=== PATIENT | male | born 1950 | race Caucasian/White ===

== ENCOUNTER 2020-06-28 18:01 | Inpatient (IN) ==
[2020-06-28] MEDS ORDERED: DEXAMETHASONE SODIUM PHOSP/PF 10 MG/ML VIAL IV ONE (18:26)
[2020-06-28] MEDS ORDERED: ALBUTEROL SULFATE/IPRATROPIUM 3 ML NEBU IH ONE (18:36)
[2020-06-28 18:53] LABS: Hematocrit 49.1 % (42.0-52.0); Mean Cell Volume 86.1 fl (78-100); Mean Corpuscular Hemoglobin 28.1 pg (27-31); Mean Corpuscular Hgb Conc 32.6 g/dl (32-36); Mean Platelet Volume 10.3 fl (8-11.3); Neutrophil # 5.4 K/mm3 (1.3-6.0); Platelet Count 124 K/mm3 (150-450); Red Cell Distribution Width 14.7 % (11.5-14.0); White Blood Count 6.2 K/mm3 (4.0-10.5)
[2020-06-28] MEDS ORDERED: ACETAMINOPHEN 1,000 MG/100 ML BTL IV ONE (19:03)
[2020-06-28 19:10] LABS: Troponin I Less than 0.017 ng/mL (0.00-0.10)
[2020-06-28 19:11] LABS: ALT 53 U/L (19-67); AST 49 U/L (0-48); Alkaline Phosphatase * 74 U/L (50-170); Anion Gap 16.3 mmol/L (6.8-13.8); BNP * 65 pg/mL (5-350); BUN/Creatinine Ratio 22.9 (9.0-21.6); Bilirubin, Total 0.6 mg/dL (0.0-1.1); Blood Urea Nitrogen 30 mg/dL (6-23); Calcium * 8.5 mg/dL (7.9-10.9); Carbon Dioxide 21.8 mmol/L (24-32.6); Chloride 103 mmol/L (97-106); Glucose * 131 mg/dL (70-110); Potassium 4.1 mmol/L (3.4-4.6); Sodium 137 mmol/L (132-142); Total Protein 6.8 gm/dL (6.2-8.2)
--- NOTE | 2020-06-28 19:28 | ERNOTE ---
<JoshuaRoddy barrera - Last Filed: 06/28/20 19:54> Dyspnea - Date Date of Service: 06/28/20 - General Presenting Symptoms: shortness of breath Time Seen by Provider: 06/28/20 18:18 Source: patient Exam Limitations: no limitations - Immun/Allergies/Home Medications Immunizations: IMMUNIZATION HX Immunizations Up to Date Yes History of Influenza Vaccine Yes Hx Pneumococcal Vaccination Yes Allergies/Adverse Reactions: Allergies Penicillins Allergy (Intermediate, Verified 06/28/20 18:27) rash, hives Home Medications: HOME MEDICATIONS Aspirin [Aspirin EC] 162 mg PO DAILY 07/25/15 [Last Taken Unknown] cinnamon bark 500 mg capsule 500 mg PO BID cap 07/12/18 [Last Taken Unknown] coenzyme Q10 10 mg capsule 10 mg PO DAILY cap 07/12/18 [Last Taken Unknown] blood-glucose meter See Dose Instructions .ROUTE .MEDSUPPLY #1 ea 12/16/18 [Last Taken Unknown] acetaminophen 325 mg tablet 325 mg PO Q4H PRN #90 tab 01/26/19 [Last Taken Unknown] albuterol sulfate 90 mcg/actuation aerosol inhaler 2 puff IH .Q4-6H #8 g 04/14/19 [Last Taken Unknown] atenolol 25 mg tablet 25 mg PO DAILY #90 tab 09/28/19 [Last Taken Unknown] enalapril maleate 20 mg tablet 20 mg PO DAILY #90 tab 09/28/19 [Last Taken Unknown] atorvastatin 40 mg tablet 40 mg PO DAILY #10 tab 12/22/19 [Last Taken Unknown] omeprazole 40 mg capsule,delayed release 40 mg PO DAILY #90 cap 06/17/20 [Last Taken Unknown] - History of Present Illness Narrative: Patient returns to the ED for worsening SOB. He was seen yesterday here and had extensive evaluation. Went home and throughout the day became more SOB. Had sats 73% RA on arrival and placed on 15L oxy mask. No acute CP. Has been feeling feverish. Has some chronic LE edema but nothing new. No vomiting. Taking medications as directed. Severity: severe Initiating event: Reports: upper resp illness Frequency of episodes: Reports: no prior episodes Modifying Factors - (Improves): Reports: nothing Modifying Factors (Worsens): Reports: activity Associated Symptoms-Dyspnea: Reports: fever/chills, cough. Denies: chest pain/discomfort, weakness Prior Treatment: Reports: recently seen Review of Systems - Review of Systems Constitutional: Present: fever EYE: Present: no symptoms reported ENT: Present: nose congestion Respiratory: Present: shortness of breath, cough Cardiology: Absent: chest pain Gastrointestinal/Abdominal: Absent: abdominal pain Neurological: Absent: weakness All Other Systems: All systems neg except as marked Medical History (Last Reviewed 06/28/20 @ 19:24 by Roddy Canada MD) Hypertension (Chronic) Onset Date: Unknown Hyperlipidemia (Chronic) Onset Date: Unknown Glucose intolerance (Chronic) Onset Date: Unknown DVT (deep venous thrombosis) Onset Date: Unknown Prostate cancer Onset Date: Unknown Surgical History: Surgical History (Last Reviewed 06/28/20 @ 19:24 by Roddy Canada MD) H/O colonoscopy Onset Date: ~2007 WNL H/O heart bypass surgery Onset Date: ~10/1998 [facility] History of prostate surgery Onset Date: ~05/[address] [facility] [address] Jesus Knapp Family History: Family History (Last Reviewed 06/28/20 @ 19:24 by Roddy Canada MD) Mother , unknown age Myocardial infarction Father , unknown age Myocardial infarction Social History: (Last Reviewed 06/28/20 @ 19:24 by Roddy Canada MD) Social History: adopted: No Marital status: lives independently: Yes household members: none current occupational status: employed current occupation: Administrative Services Assistant Highest education level completed: high school graduate Service: No Tobacco: Smoking Status: Former smoker how long ago did patient quit smokin Alcohol: alcohol intake: current alcohol intake frequency: 3 or more drinks per day details: * family informed staff of alcohol intake, pt states he only drinks on Fri Substance Use: substance use type: does not use Dietary Habits: caffeine: Yes Physical Exam - Physical Exam General Appearance: Present: alert, moderate distress Head Exam: Present: normal inspection, no evidence of injury Eye Exam: Normal inspection: bilateral, PERRL: bilateral Ears, Nose, Throat: Present: normal ENT inspection Neck: Present: normal inspection Respiratory: Present: respiratory distress, other - tachypnea but no active wheezing heard Cardiovascular/Chest: Present: normal peripheral pulses, tachycardia Gastrointestinal/Abdominal: Present: normal bowel sounds, nontender, soft Back Exam: Absent: CVA tenderness (R), CVA tenderness (L) Extremity Exam: Present: other - left LE edema that is postsurgical Neurological Exam: Present: alert, no motor/sensory deficits Skin Exam: Present: normal color, warm/dry Progress - Results and Orders Patient's Lab Results:: I have reviewed the patient's lab results. - Vital Signs Patient's Vital Signs:: I have reviewed the patient's vital signs. Vital Signs: Vital Signs 06/28/20 18:20 06/28/20 18:33 06/28/20 18:41 Temperature 38.9 C H Pulse Rate 86 82 117 H Respiratory Rate 24 H 19 33 H Blood Pressure 127/61 116/60 116/60 O2 Sat by Pulse Oximetry 73 L 94 93 06/28/20 18:42 06/28/20 18:52 06/28/20 18:57 Temperature Pulse Rate 98 88 87 Respiratory Rate 15 19 19 Blood Pressure 104/53 O2 Sat by Pulse Oximetry 94 97 06/28/20 18:58 06/28/20 19:04 06/28/20 19:12 Temperature 38.4 C H Pulse Rate 86 82 105 H Respiratory Rate 31 H 18 12 Blood Pressure 106/51 106/51 106/51 O2 Sat by Pulse Oximetry 95 94 94 - EKG EKG #1 EKG read: Interp. by me EKG Comments: Sinus tachycardia rate 109. Non-specific, no STEMI noted. - X-Ray X-Ray #1 X-Ray: chest Interpretation: Interp. by me X-ray Comments: I personally reviewed x-ray images, c/w Covid. No real time radiology reads at this time. - Progress/Reassessment Chief Complaint: Dyspnea Progress Note-Subjective: 06/28/20 19:26 Patient given oxygen and this was titrated and he felt significantly improved. Titrated 3L with sats 93%. IV Decadron given. He will need admission and he understands this. - Transfer of Care Physician Sign Out: Roddy Canada Receiving Physician: Liz Caldera Pending Results: Labs Expected Disposition: Admit Departure Clinical Impression: Hypoxia, COVID-19, COPD (chronic obstructive pulmonary disease) - Departure Disposition: Short Term Hospital Inpatient Condition: Fair Referrals: Nadine Andrea MD [Primary Care Provider] - <Liz Caldera - Last Filed: 06/28/20 20:41> Dyspnea - Immun/Allergies/Home Medications Immunizations: IMMUNIZATION HX Immunizations Up to Date Yes History of Influenza Vaccine Yes Hx Pneumococcal Vaccination Yes Medical History (Last Reviewed 06/28/20 @ 19:24 by Roddy Canada MD) Hypertension (Chronic) Onset Date: Unknown Hyperlipidemia (Chronic) Onset Date: Unknown Glucose intolerance (Chronic) Onset Date: Unknown DVT (deep venous thrombosis) Onset Date: Unknown Prostate cancer Onset Date: Unknown Surgical History: Surgical History (Last Reviewed 06/28/20 @ 19:24 by Roddy Canada MD) H/O colonoscopy Onset Date: ~2007 WNL H/O heart bypass surgery Onset Date: ~10/1998 [facility] History of prostate surgery Onset Date: ~05/[address] [facility] [address] Jesus Knapp Family History: Family History (Last Reviewed 06/28/20 @ 19:24 by Roddy Canada MD) Mother , unknown age Myocardial infarction Father , unknown age Myocardial infarction Social History: (Last Reviewed 06/28/20 @ 19:24 by Roddy Canada MD) Social History: adopted: No Marital status: lives independently: Yes household members: none current occupational status: employed current occupation: Administrative Services Assistant Highest education level completed: high school graduate Service: No Tobacco: Smoking Status: Former smoker how long ago did patient quit smokin Alcohol: alcohol intake: current alcohol intake frequency: 3 or more drinks per day details: * family informed staff of alcohol intake, pt states he only drinks on Fri Substance Use: substance use type: does not use Dietary Habits: caffeine: Yes Progress - Vital Signs Vital Signs: Vital Signs 06/28/20 18:20 06/28/20 18:33 06/28/20 18:41 Temperature 38.9 C H Pulse Rate 86 82 117 H Respiratory Rate 24 H 19 33 H Blood Pressure 127/61 116/60 116/60 O2 Sat by Pulse Oximetry 73 L 94 93 06/28/20 18:42 06/28/20 18:52 06/28/20 18:57 Temperature Pulse Rate 98 88 87 Respiratory Rate 15 19 19 Blood Pressure 104/53 O2 Sat by Pulse Oximetry 94 97 06/28/20 18:58 06/28/20 19:04 06/28/20 19:12 Temperature 38.4 C H Pulse Rate 86 82 105 H Respiratory Rate 31 H 18 12 Blood Pressure 106/51 106/51 106/51 O2 Sat by Pulse Oximetry 95 94 94 06/28/20 19:26 06/28/20 19:27 06/28/20 19:34 Temperature 38.5 C H Pulse Rate 104 H 104 H Respiratory Rate 22 H 22 H Blood Pressure 101/50 123/48 O2 Sat by Pulse Oximetry 95 94 88 L 06/28/20 19:45 06/28/20 20:08 06/28/20 20:36 Temperature 37 C Pulse Rate 101 H 99 88 Respiratory Rate 22 H 20 18 Blood Pressure 100/44 101/56 98/53 O2 Sat by Pulse Oximetry 98 97 100 Plan - Plan Plan: case dw dr sharma who accepted pt to [facility] bed which is available. requests additional tests procalcitonin, ddimer, esr, crp. will start pt on remdesivir
[2020-06-28] MEDS ORDERED: NORMAL SALINE 1,000 ML IV ONE ×2 (20:17→20:18)
[2020-06-28] MEDS ORDERED: REMDESIVIR (EUA) 200 MG in NORMAL SALINE 210 ML IV ONE (21:06)
[2020-06-28] MEDS: ENOXAPARIN SODIUM 100 MG/ML SYRG SC SCH (22:19)
[2020-06-29 07:27] LABS: Albumin * 2.7 gm/dl (3.4-5.0); Anion Gap 12.1 mmol/L (6.8-13.8); Bilirubin, Total 0.6 mg/dL (0.0-1.1); Ca. Corrected For Albumin 8.7 mg/dL (8.4-10.2); Carbon Dioxide 23.3 mmol/L (24-32.6); Potassium 4.4 mmol/L (3.4-4.6); Total Protein 6.5 gm/dL (6.2-8.2)
--- NOTE | 2020-06-29 14:45 | HP ---
Chief Complaint - Chief Complaint Date of Service: 06/28/20 Time of Service: 18:15 Chief Complaint: Shortness of breath, fever History of Present Illness: Patient returns to the ED for worsening SOB. He was seen yesterday here and had extensive evaluation. Went home and throughout the day became more SOB. Had sats 73% RA on arrival and placed on 15L oxy mask. No acute CP. Has been feeling feverish. Has some chronic LE edema but nothing new. No vomiting. Taking medications as directed. Per my exam in the ER he was still quite air hungry and requiring high flow oxygen. He is Covid positive. The chest x-ray showed bilateral pulmonary infiltrates consistent with COVID-19 positive test (U07.1, COVID-19) with Acute Pneumonia (J12.89, Other viral pneumonia) (If respiratory failure or sepsis present, add as separate assessment). I agree admission is appropriate. . Medical History (Last Reviewed 06/28/20 @ 22:21 by Shira Cruz RN) Hypertension (Chronic) Onset Date: Unknown Hyperlipidemia (Chronic) Onset Date: Unknown Glucose intolerance (Chronic) Onset Date: Unknown DVT (deep venous thrombosis) Onset Date: Unknown Prostate cancer Onset Date: Unknown Surgical History: Surgical History (Last Reviewed 06/28/20 @ 22:21 by Shira Cruz RN) H/O colonoscopy Onset Date: ~2007 WNL H/O heart bypass surgery Onset Date: ~10/1998 [facility] History of prostate surgery Onset Date: ~05/[address] [facility] [address] Jesus Knapp Family History: Family History (Last Reviewed 06/28/20 @ 22:21 by Shira Cruz, RN) Mother , unknown age Myocardial infarction Father , unknown age Myocardial infarction Social History: (Last Reviewed 06/28/20 @ 22:21 by Shira Cruz RN) Social History: adopted: No Marital status: lives independently: Yes household members: none current occupational status: employed current occupation: Medical Coding Manager Highest education level completed: high school graduate Service: No Tobacco: Smoking Status: Former smoker how long ago did patient quit smokin Alcohol: alcohol intake: current alcohol intake frequency: 3 or more drinks per day details: * family informed staff of alcohol intake, pt states he only drinks on Fri Substance Use: substance use type: does not use Dietary Habits: caffeine: Yes Review Of Systems (GEN) - Review of Systems Generalized/Overall Review: Present: No Symptoms Reported EENTM: Present: No Symptoms Reported Respiratory: Present: Cough, Shortness of Breath Cardiac: Present: No Symptoms Reported Abdominal: Present: No Symptoms Reported Genitourinary: Present: No Symptoms Reported Musculoskeletal: Present: No Symptoms Reported, Neck Pain Skin: Present: No Symptoms Reported Endocrine: Present: No Symptoms Reported Immunizations: IMMUNIZATION HX Immunizations Up to Date Yes History of Influenza Vaccine Yes Hx Pneumococcal Vaccination Yes Allergies/Adverse Reactions: Allergies Allergy/AdvReac Type Severity Reaction Status Date / Time Penicillins Allergy Intermediate rash, hives Verified 06/28/20 18:27 Home Medications: HOME MEDICATIONS Aspirin [Aspirin EC] 162 mg PO DAILY 07/25/15 [Last Taken Unknown] cinnamon bark 500 mg capsule 500 mg PO DAILY cap 07/12/18 [Last Taken Unknown] coenzyme Q10 10 mg capsule 10 mg PO DAILY cap 07/12/18 [Last Taken Unknown] blood-glucose meter See Dose Instructions .ROUTE .MEDSUPPLY #1 ea 12/16/18 [Last Taken Unknown] acetaminophen 325 mg tablet 325 mg PO Q4H PRN #90 tab 01/26/19 [Last Taken Unknown] atenolol 25 mg tablet 25 mg PO DAILY #90 tab 09/28/19 [Last Taken Unknown] enalapril maleate 20 mg tablet 20 mg PO DAILY #90 tab 09/28/19 [Last Taken Unknown] omeprazole 40 mg capsule,delayed release 40 mg PO DAILY #90 cap 06/17/20 [Last Taken Unknown] Albuterol Sulfate [Proventil Hfa] 2 puff INHALATION .Q4-6H PRN 06/28/20 [Last Taken Unknown] Anoro Ellipta 62.5-25 Mcg INH 62.5 mcg INHALATION DAILY 06/28/20 [Last Taken Unknown] Atorvastatin Calcium 40 mg PO HS 06/28/20 [Last Taken Unknown] Exam - Exam Vital Signs: Vital Signs - Last Taken Temp 36.8 C 06/29/20 10:00 Pulse 90 06/29/20 14:00 Resp 20 06/29/20 10:00 BP 156/82 H 06/29/20 10:00 Pulse Ox 93 06/29/20 10:00 Constitutional: Present: Alert, Oriented x3, Well developed, Moderate distress, Morbidly obese ENT Exam: Present: normal ENT inspection, hearing grossly normal, pharynx normal Eye Exam: bilateral eye: normal inspection, PERRL, EOMI Neck: Present: non-tender, full range of motion, supple Back Exam: Present: normal inspection, no CVA tenderness, no vertebral tenderness Breasts: Present: Exam deferred Respiratory: Present: chest non-tender, lungs clear, normal breath sounds, no respiratory distress, no accessory muscle use Cardiovascular/Chest: Present: normal peripheral pulses, regular rate, rhythm, no chest tenderness, no edema, no gallop, no JVD, no murmur, no rub Peripheral Pulses: carotid (R): 2+, carotid (L): 2+, radial (R): 2+, radial (L): 2+ Abdomen: Present: Normal bowel sounds, soft, nontender, nondistended, no rebound tenderness, no hepatospenomegaly, no masses /Rectal: Present: Exam deferred, External genitalia normal Extremity: Present: normal range of motion, non-tender, normal inspection, no pedal edema, no calf tenderness, normal capillary refill Skin Exam: Present: normal color, warm/dry, no cyanosis Lymphatic: Present: no adenopathy 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, normal cerebellar test, no motor/sensory deficits, alert, normal mood/affect, oriented x 3 Appearance: Present: appropriate appearance, appropriate insight, neat, no memory impairment Eye contact: Present: cooperative, good eye contact, normal speech, avoids eye contact Thoughts: Present: normal thought pattern, no apparent hallucination Diagnostic Studies: Abnormal Lab Results 06/28/20 06/28/20 06/28/20 Range/Units 18:23 18:30 18:39 RDW 14.7 H (11.5-14.0) % Plt Count 124 L (150-450) K/mm3 Neutrophils % 87.0 H (42-75.0) % Lymphocytes % 8.1 L (20-51) % Lymphocytes # 0.50 L (1.5-3.5) k/mm3 ESR (0-10) mm/hr D-Dimer (0.19-0.49) ug/mL pCO2 27.6 L (35.0-48.0) mmHg pO2 64.1 L (83.0-108.0) mmHg HCO3 18.3 L (21.0-28.0) mmol/L Base Excess -4.0 L (-2.0-3.0) mmol/L ABG O2 Sat (Measured) 93.5 L (94.0-98.0) % Carbon Dioxide (24-32.6) mmol/L Anion Gap (6.8-13.8) mmol/L BUN (6-23) mg/dL Est GFR (Non-Af Amer) (60-130) mL/min BUN/Creatinine Ratio (9.0-21.6) Random Glucose (70-110) mg/dL Lactic Acid, Venous (0.4-2.0) mmol/L AST (0-48) U/L C-Reactive Prot, Quant (0.0-0.9) mg/dL Albumin (3.4-5.0) gm/dl SARS-CoV-2 (PCR) Detected H (NotDetected) 06/28/20 06/28/20 06/28/20 Range/Units 18:39 18:39 18:39 RDW (11.5-14.0) % Plt Count (150-450) K/mm3 Neutrophils % (42-75.0) % Lymphocytes % (20-51) % Lymphocytes # (1.5-3.5) k/mm3 ESR 29 H (0-10) mm/hr D-Dimer (0.19-0.49) ug/mL pCO2 (35.0-48.0) mmHg pO2 (83.0-108.0) mmHg HCO3 (21.0-28.0) mmol/L Base Excess (-2.0-3.0) mmol/L ABG O2 Sat (Measured) (94.0-98.0) % Carbon Dioxide 21.8 L (24-32.6) mmol/L Anion Gap 16.3 H (6.8-13.8) mmol/L BUN 30 H D (6-23) mg/dL Est GFR (Non-Af Amer) 58 L (60-130) mL/min BUN/Creatinine Ratio 22.9 H (9.0-21.6) Random Glucose 131 H (70-110) mg/dL Lactic Acid, Venous 2.7 H* (0.4-2.0) mmol/L AST 49 H (0-48) U/L C-Reactive Prot, Quant (0.0-0.9) mg/dL Albumin 3.0 L (3.4-5.0) gm/dl SARS-CoV-2 (PCR) (NotDetected) 06/28/20 06/28/20 06/29/20 Range/Units 18:39 18:39 06:55 RDW (11.5-14.0) % Plt Count (150-450) K/mm3 Neutrophils % (42-75.0) % Lymphocytes % (20-51) % Lymphocytes # (1.5-3.5) k/mm3 ESR (0-10) mm/hr D-Dimer 1.16 H (0.19-0.49) ug/mL pCO2 (35.0-48.0) mmHg pO2 (83.0-108.0) mmHg HCO3 (21.0-28.0) mmol/L Base Excess (-2.0-3.0) mmol/L ABG O2 Sat (Measured) (94.0-98.0) % Carbon Dioxide 23.3 L (24-32.6) mmol/L Anion Gap (6.8-13.8) mmol/L BUN 24 H (6-23) mg/dL Est GFR (Non-Af Amer) (60-130) mL/min BUN/Creatinine Ratio (9.0-21.6) Random Glucose 135 H (70-110) mg/dL Lactic Acid, Venous (0.4-2.0) mmol/L AST 56 H (0-48) U/L C-Reactive Prot, Quant 2.0 H (0.0-0.9) mg/dL Albumin 2.7 L (3.4-5.0) gm/dl SARS-CoV-2 (PCR) (NotDetected) Laboratory Results WBC 6.2 K/mm3 (4.0-10.5) D 06/28/20 18:39 RBC 5.70 M/mm3 (4.7-6.0) 06/28/20 18:39 Hgb 16.0 gm/dL (13.5-18.0) 06/28/20 18:39 Hct 49.1 % (42.0-52.0) 06/28/20 18:39 MCV 86.1 fl (78-100) 06/28/20 18:39 MCH 28.1 pg (27-31) 06/28/20 18:39 MCHC 32.6 g/dl (32-36) 06/28/20 18:39 RDW 14.7 % (11.5-14.0) H 06/28/20 18:39 Plt Count 124 K/mm3 (150-450) L 06/28/20 18:39 MPV 10.3 fl (8-11.3) 06/28/20 18:39 Immature Gran % (Auto) 0.20 % (0.001-0.429) 06/28/20 18:39 Immature Gran # (Auto) 0.01 K/mm3 (0.000-0.0310) 06/28/20 18:39 Neutrophils % 87.0 % (42-75.0) H 06/28/20 18:39 Lymphocytes % 8.1 % (20-51) L 06/28/20 18:39 Monocytes % 4.7 % (0.0-9) 06/28/20 18:39 Eosinophils % 0.0 % (0.0-3.0) 06/28/20 18: Basophils % 0.0 % (0.0-1.0) 06/28/20 18: Nucleated RBC % 0.0 k/mm3 (0-1) 06/28/20 18: Neutrophils # 5.4 K/mm3 (1.3-6.0) 06/28/20 18:39 Lymphocytes # 0.50 k/mm3 (1.5-3.5) L 06/28/20 18: Monocytes # 0.3 k/mm3 (0.0-1.0) 06/28/20 18: Eosinophils # 0.0 k/mm3 (0.0-0.7) 06/28/20 18: Absolute Basophils 0.0 k/mm3 (0.0-0.1) 06/28/20 18:39 ESR 29 mm/hr (0-10) H 06/28/20 18:39 D-Dimer 1.16 ug/mL (0.19-0.49) H 06/28/20 18:39 pCO2 27.6 mmHg (35.0-48.0) L 06/28/20 18:30 pO2 64.1 mmHg (83.0-108.0) L 06/28/20 18:30 HCO3 18.3 mmol/L (21.0-28.0) L 06/28/20 18:30 Total CO2 19.1 mmol/L (19.0-24.0) 06/28/20 18:30 Base Excess -4.0 mmol/L (-2.0-3.0) L 06/28/20 18:30 ABG pH 7.44 (7.35-7.45) 06/28/20 18:30 ABG O2 Sat (Measured) 93.5 % (94.0-98.0) L 06/28/20 18:30 Sodium 137 mmol/L (132-142) 06/29/20 06:55 Plasma Sodium 138 mmol/L (130-142) 06/29/20 06:55 Potassium 4.4 mmol/L (3.4-4.6) 06/29/20 06:55 Chloride 106 mmol/L (97-106) 06/29/20 06:55 Carbon Dioxide 23.3 mmol/L (24-32.6) L 06/29/20 06:55 Anion Gap 12.1 mmol/L (6.8-13.8) 06/29/20 06:55 BUN 24 mg/dL (6-23) H 06/29/20 06:55 Creatinine 1.20 mg/dL (0.4-1.4) 06/29/20 06:55 Est GFR (Non-Af Amer) 64 mL/min (60-130) 06/29/20 06:55 BUN/Creatinine Ratio 20.0 (9.0-21.6) 06/29/20 06:55 Random Glucose 135 mg/dL (70-110) H 06/29/20 06:55 Lactic Acid, Venous 1.9 mmol/L (0.4-2.0) 06/28/20 21:29 Calcium 8.0 mg/dL (7.9-10.9) 06/29/20 06:55 Calcium Adj for Albumin 8.7 mg/dL (8.4-10.2) 06/29/20 06:55 Total Bilirubin 0.6 mg/dL (0.0-1.1) 06/29/20 06:55 AST 56 U/L (0-48) H 06/29/20 06:55 ALT 56 U/L (19-67) 06/29/20 06:55 Alkaline Phosphatase 78 U/L (50-170) 06/29/20 06:55 Troponin I Less than 0.017 ng/mL (0.00-0.10) 06/28/20 18:39 C-Reactive Prot, Quant 2.0 mg/dL (0.0-0.9) H 06/28/20 18:39 B-Natriuretic Peptide 65 pg/mL (5-350) 06/28/20 18:39 Total Protein 6.5 gm/dL (6.2-8.2) 06/29/20 06:55 Albumin 2.7 gm/dl (3.4-5.0) L 06/29/20 06:55 Procalcitonin 0.17 ng/mL (0.05-0.50) 06/28/20 18:39 SARS-CoV-2 (PCR) Detected (NotDetected) H 06/28/20 18:23 Assessment/Plan - Assessment/Plan (1) Pneumonia due to COVID-19 virus Problem: Acute (2) Morbid obesity with BMI of 40.0-44.9, adult Problem: Acute (3) Hypoxia Problem: Acute (4) COVID-19 Problem: Acute (5) Diabetes mellitus Problem: Acute Qualifiers: Diabetes mellitus type: type 2 Diabetes mellitus complication status: without complication (6) Coronary artery disease Problem: Chronic Qualifiers: Coronary Disease-Associated Artery/Lesion type: [place] artery [place] vs. t ransplanted heart: [place] heart Associated angina: without angina Qualified Code(s): I25.10 - Atherosclerotic heart disease of [place] coronary artery without angina pectoris (7) COPD (chronic obstructive pulmonary disease) Problem: Chronic Qualifiers: COPD type: chronic bronchitis Chronic bronchitis type: simple Qualified Code(s): J41.0 - Simple chronic bronchitis
[2020-06-29] MEDS ORDERED: NITROGLYCERIN 0.4 MG/TAB BTL SL PRN (14:55)
--- NOTE | 2020-06-29 14:55 | PN ---
Subjective - Date and Time Seen Date: 06/29/20 Time: : Subjective Narrative: Aristeo Pinon is a 69-year-old male with no local physician who presented to ER with marked shortness of breath. He had been seen 24 hours earlier but his hypoxia progressed and he represented to the ER. He arrived with a pulse ox of 73%. He was placed on 15L nasal cannula and then changed to nonrebreather mask. O2 saturations improved into the low 90s and then his oxygen was weaned all the way down to 3 L before going back up to 6. He has been anywhere from 15 to 6 L through the night and this afternoon had another episode where it had to go back up to 15 L. He continues to struggle. This time of my visit this morning and however he was very comfortable sitting up in was able to converse in full sentences. Auscultation of the chest shows diminished breath sounds with crackles and wheezes present. His lab work shows a BMP was okay this morning. The anion gap has decreased to 12.1 from 16.5. His renal status is good. His liver function studies are okay except AST slightly high at 56 and up from yesterday's 49. The chest x-ray has not yet been read. Per my read it shows cardiomegaly and bilateral pulmonary infiltrates consistent with the Covid pneumonia. EKG done because of chest discomfort shows a probable old anteroseptal wall PA but no acute changes. He is in normal sinus rhythm with occasional PVCs. I will continue him on steroids. He is not a candidate for remdesivir because of the high flow oxygen he still requiring. Objective - Review of Systems Generalized/Overall Review: Reports: Weakness, Chills, Fever, Malaise, Fatigue EENTM: Reports: No Symptoms Reported Respiratory: Reports: Cough, Shortness of Breath Cardiac: Reports: Chest Pain, Edema Abdominal: Reports: No Symptoms Reported, Nausea, Vomiting, Hematemesis, Abdominal Pain Genitourinary Symptoms: Reports: No Symptoms Reported Neurological: Reports: No Symptoms Reported Skin: Reports: No Symptoms Reported Endocrine: Reports: No Symptoms Reported - Vitals Vitals: Last Vital Signs Temp 36.8 C 06/29/20 10:00 Pulse 90 06/29/20 14:00 Resp 20 06/29/20 10:00 BP 156/82 H 06/29/20 10:00 Pulse Ox 93 06/29/20 14:25 - Abnormal Lab Findings Abnormal Lab Findings: Abnormal Lab Results 06/28/20 06/28/20 06/28/20 Range/Units 18:23 18:30 18:39 RDW 14.7 H (11.5-14.0) % Plt Count 124 L (150-450) K/mm3 Neutrophils % 87.0 H (42-75.0) % Lymphocytes % 8.1 L (20-51) % Lymphocytes # 0.50 L (1.5-3.5) k/mm3 ESR (0-10) mm/hr D-Dimer (0.19-0.49) ug/mL pCO2 27.6 L (35.0-48.0) mmHg pO2 64.1 L (83.0-108.0) mmHg HCO3 18.3 L (21.0-28.0) mmol/L Base Excess -4.0 L (-2.0-3.0) mmol/L ABG O2 Sat (Measured) 93.5 L (94.0-98.0) % Carbon Dioxide (24-32.6) mmol/L Anion Gap (6.8-13.8) mmol/L BUN (6-23) mg/dL Est GFR (Non-Af Amer) (60-130) mL/min BUN/Creatinine Ratio (9.0-21.6) Random Glucose (70-110) mg/dL Lactic Acid, Venous (0.4-2.0) mmol/L AST (0-48) U/L C-Reactive Prot, Quant (0.0-0.9) mg/dL Albumin (3.4-5.0) gm/dl SARS-CoV-2 (PCR) Detected H (NotDetected) 06/28/20 06/28/20 06/28/20 Range/Units 18:39 18:39 18:39 RDW (11.5-14.0) % Plt Count (150-450) K/mm3 Neutrophils % (42-75.0) % Lymphocytes % (20-51) % Lymphocytes # (1.5-3.5) k/mm3 ESR 29 H (0-10) mm/hr D-Dimer (0.19-0.49) ug/mL pCO2 (35.0-48.0) mmHg pO2 (83.0-108.0) mmHg HCO3 (21.0-28.0) mmol/L Base Excess (-2.0-3.0) mmol/L ABG O2 Sat (Measured) (94.0-98.0) % Carbon Dioxide 21.8 L (24-32.6) mmol/L Anion Gap 16.3 H (6.8-13.8) mmol/L BUN 30 H D (6-23) mg/dL Est GFR (Non-Af Amer) 58 L (60-130) mL/min BUN/Creatinine Ratio 22.9 H (9.0-21.6) Random Glucose 131 H (70-110) mg/dL Lactic Acid, Venous 2.7 H* (0.4-2.0) mmol/L AST 49 H (0-48) U/L C-Reactive Prot, Quant (0.0-0.9) mg/dL Albumin 3.0 L (3.4-5.0) gm/dl SARS-CoV-2 (PCR) (NotDetected) 06/28/20 06/28/20 06/29/20 Range/Units 18:39 18:39 06:55 RDW (11.5-14.0) % Plt Count (150-450) K/mm3 Neutrophils % (42-75.0) % Lymphocytes % (20-51) % Lymphocytes # (1.5-3.5) k/mm3 ESR (0-10) mm/hr D-Dimer 1.16 H (0.19-0.49) ug/mL pCO2 (35.0-48.0) mmHg pO2 (83.0-108.0) mmHg HCO3 (21.0-28.0) mmol/L Base Excess (-2.0-3.0) mmol/L ABG O2 Sat (Measured) (94.0-98.0) % Carbon Dioxide 23.3 L (24-32.6) mmol/L Anion Gap (6.8-13.8) mmol/L BUN 24 H (6-23) mg/dL Est GFR (Non-Af Amer) (60-130) mL/min BUN/Creatinine Ratio (9.0-21.6) Random Glucose 135 H (70-110) mg/dL Lactic Acid, Venous (0.4-2.0) mmol/L AST 56 H (0-48) U/L C-Reactive Prot, Quant 2.0 H (0.0-0.9) mg/dL Albumin 2.7 L (3.4-5.0) gm/dl SARS-CoV-2 (PCR) (NotDetected) - EKG/Xray Findings EKG: NSR, premature vent. contract., other - Old anterior wall PA possible EKG read: Interp. by me - Exam Constitutional: Present: Alert, Oriented x3, Cooperative, Well developed, Well nourished, Mild distress, Morbidly obese ENT Exam: Present: normal ENT inspection Neck: Present: non-tender, full range of motion, supple, normal inspection Breasts: Present: Exam deferred Respiratory: Present: chest non-tender, decreased breath sounds, crackles, wheezing Cardiovascular/Chest: Present: normal peripheral pulses, regular rate, rhythm, no chest tenderness, edema Abdomen: Present: Normal bowel sounds, soft, nontender, nondistended, no rebound tenderness, no hepatospenomegaly, no masses, obese /Rectal: Present: Exam deferred Extremity: Present: normal range of motion, non-tender, normal inspection, no pedal edema, no calf tenderness, normal capillary refill Skin Exam: Present: normal color, warm/dry, no cyanosis Lymphatic: Present: no adenopathy Neurologic: Present: franchise broker II-XII nml as tested, normal cerebellar test, no motor/sensory deficits, alert, normal mood/affect Appearance: Present: appropriate appearance, appropriate insight, neat, no memory impairment Eye contact: Present: cooperative, good eye contact, normal speech Thoughts: Present: normal thought pattern, no apparent hallucination Assessment/Plan Plan Narrative: Continue with oral dexamethasone and with anticoagulation therapy. - Problems/Diagnosis (1) COVID-19 Problem: Acute (2) Pneumonia due to COVID-19 virus Problem: Acute (3) Hypoxia Problem: Acute (4) Morbid obesity with BMI of 40.0-44.9, adult Problem: Acute (5) Diabetes mellitus Problem: Acute Qualifiers: Diabetes mellitus type: type 2 Diabetes mellitus complication status: without complication (6) Coronary artery disease Problem: Chronic Qualifiers: Coronary Disease-Associated Artery/Lesion type: [place] artery [place] vs. transplanted heart: [place] heart Associated angina: without angina Qualified Code(s): I25.10 - Atherosclerotic heart disease of [place] coronary artery without angina pectoris (7) COPD (chronic obstructive pulmonary disease) Problem: Chronic Qualifiers: COPD type: chronic bronchitis Chronic bronchitis type: simple Qualified Code(s): J41.0 - Simple chronic bronchitis
[2020-06-29] MEDS ORDERED: ACETAMINOPHEN 325 MG TABLET PO PRN (14:56)
[2020-06-29 15:20] LABS: Albumin * 2.9 gm/dl (3.4-5.0); Anion Gap 15.3 mmol/L (6.8-13.8); BUN/Creatinine Ratio 21.2 (9.0-21.6); Bilirubin, Total 0.5 mg/dL (0.0-1.1); CRP 3.9 mg/dL (0.0-0.9); Ca. Corrected For Albumin 9.1 mg/dL (8.4-10.2); Calcium * 8.5 mg/dL (7.9-10.9); Carbon Dioxide 22.9 mmol/L (24-32.6); Potassium 4.2 mmol/L (3.4-4.6); Total Protein 6.6 gm/dL (6.2-8.2)
[2020-06-29] MEDS: ANORO ELLIPTA PO SCH (16:08)
[2020-06-29] MEDS: PANTOPRAZOLE SODIUM 40 MG TABLET.EC PO SCH (16:09)
[2020-06-29] MEDS: ENALAPRIL MALEATE 20 MG TABLET PO SCH (16:09)
[2020-06-29] MEDS: ASPIRIN 81 MG TABLET.DR PO SCH (16:09)
[2020-06-29] MEDS: ALBUTEROL SULFATE 200 PUFF INHALER IH PRN ×2 (16:13→22:52)
[2020-06-29] MEDS ORDERED: LORazepam 2 MG/ML DISP.SYRIN IV ONE (16:54)
[2020-06-29] MEDS ORDERED: MORPHINE SULFATE 4 MG/ML SYRG IV STA (16:54)
[2020-06-29] MEDS ORDERED: DEXAMETHASONE 4 MG TABLET PO SCH (19:45)
[2020-06-29 20:52] LABS: Hematocrit 48.4 % (42.0-52.0); Hemoglobin 15.4 gm/dL (13.5-18.0); Mean Cell Volume 87.4 fl (78-100); Mean Corpuscular Hemoglobin 27.8 pg (27-31); Mean Corpuscular Hgb Conc 31.8 g/dl (32-36); Mean Platelet Volume 10.1 fl (8-11.3); Neutrophil # 7.4 K/mm3 (1.3-6.0); Neutrophil % 88.9 % (42-75.0); Platelet Count 134 K/mm3 (150-450); Red Blood Count 5.54 M/mm3 (4.7-6.0); Red Cell Distribution Width 14.7 % (11.5-14.0); White Blood Count 8.3 K/mm3 (4.0-10.5)
[2020-06-29] MEDS: ENOXAPARIN SODIUM 100 MG/ML SYRG SC SCH (21:12)
[2020-06-29] MEDS: ROSUVASTATIN CALCIUM 20 MG TABLET PO SCH (21:12)
[2020-06-30] MEDS: PANTOPRAZOLE SODIUM 40 MG TABLET.EC PO SCH (07:37)
[2020-06-30 07:51] LABS: Albumin * 2.9 gm/dl (3.4-5.0); Anion Gap 15.6 mmol/L (6.8-13.8); Bilirubin, Total 0.7 mg/dL (0.0-1.1); Calcium * 8.4 mg/dL (7.9-10.9); Carbon Dioxide 25.2 mmol/L (24-32.6); Potassium 4.8 mmol/L (3.4-4.6)
[2020-06-30] MEDS: ATENOLOL 25 MG TABLET PO SCH (08:19)
[2020-06-30] MEDS: ENALAPRIL MALEATE 20 MG TABLET PO SCH (08:19)
[2020-06-30] MEDS: ASPIRIN 81 MG TABLET.DR PO SCH (08:20)
[2020-06-30] MEDS: DEXAMETHASONE 2 MG TABLET PO SCH (08:31)
[2020-06-30] MEDS: ANORO ELLIPTA PO SCH (08:38)
[2020-06-30] MEDS ORDERED: METHYLPREDNISOLONE SOD SUCC/PF 40 MG/ML VIAL IV ONE (10:20)
--- NOTE | 2020-06-30 19:34 | PN ---
Subjective - Date and Time Seen Date: 06/30/20 Time: 11:15 Subjective Narrative: Aristeo Pinon is a 69-year-old male with no local physician who presented to ER with marked shortness of breath. He had been seen 24 hours earlier but his hypoxia progressed and he represented to the ER. He arrived with a pulse ox of 73%. He was placed on 15L nasal cannula and then changed to nonrebreather mask. O2 saturations improved into the low 90s and then his oxygen was weaned all the way down to 3 L before going back up to 6. He has been anywhere from 15 to 6 L through the night and this afternoon had another episode where it had to go back up to 15 L. He continues to struggle. This time of my visit this morning and however he was very comfortable sitting up in was able to converse in full sentences. Auscultation of the chest shows diminished breath sounds with crackles and wheezes present. His lab work shows a BMP was okay this morning. The anion gap has decreased to 12.1 from 16.5. His renal status is good. His liver function studies are okay except AST slightly high at 56 and up from yesterday's 49. The chest x-ray has not yet been read. Per my read it shows cardiomegaly and bilateral pulmonary infiltrates consistent with the Covid pneumonia. EKG done because of chest discomfort shows a probable old anteroseptal wall SC but no acute changes. He is in normal sinus rhythm with occasional PVCs. I will continue him on steroids. He is not a candidate for remdesivir because of the high flow oxygen he still requiring. The vital signs this morning show temperature 36.9, pulse is 97, BP is 128/67, respiratory 18 and unlabored and down from 38 yesterday and down from 40 the day before. He is still requiring BiPAP at high flow rates but clinically is improving. Lab: Potassium up slightly to 4.8 from 4.2 yesterday. EGFR 68. Glucose random is 161 and up from 126 yesterday. AST is 60 and the total protein is 6.0 and the albumin is 2.9. During my exam he is sitting up on the edge of the bed and talking with his CPAP on. He became pretty hypoxic last evening and required CPAP to be applied has high flow nonrebreather mask oxygen was an adequate. He slept fairly well through the night. And watching him breathe while he was resting is respiratory rate is still about 36 breaths/min. He is not laboring however. His color is good. Auscultation of the chest still shows some scattered crackles but improved from last night and yesterday. Continue current therapy. His EKG does not show any acute changes to explain the substernal chest pain he has been having. The chest x-ray shows increased consolidation in the right lung but multi lobular infiltrates bilaterally consistent with viral pneumonitis and his known COVID-19 infection. Objective - Review of Systems Generalized/Overall Review: Reports: Malaise EENTM: Reports: No Symptoms Reported Respiratory: Reports: Cough, Shortness of Breath Cardiac: Reports: No Symptoms Reported Abdominal: Reports: No Symptoms Reported Genitourinary Symptoms: Reports: No Symptoms Reported Musculoskeletal Complaints: Reports: No Symptoms Reported Neurological: Reports: No Symptoms Reported Skin: Reports: No Symptoms Reported Endocrine: Reports: No Symptoms Reported - Vitals Vitals: Last Vital Signs Temp 36.6 C 06/30/20 19:10 Pulse 90 06/30/20 19:10 Resp 28 H 06/30/20 19:10 BP 112/65 06/30/20 19:10 Pulse Ox 92 L 06/30/20 19:10 - Abnormal Lab Findings Abnormal Lab Findings: Abnormal Lab Results 06/29/20 06/29/20 06/30/20 Range/Units 20:40 20:40 06:30 MCHC 31.8 L (32-36) g/dl RDW 14.7 H (11.5-14.0) % Plt Count 134 L (150-450) K/mm3 Neutrophils % 88.9 H (42-75.0) % Lymphocytes % 6.4 L (20-51) % Neutrophils # 7.4 H (1.3-6.0) K/mm3 Lymphocytes # 0.53 L (1.5-3.5) k/mm3 ESR 25 H (0-10) mm/hr Potassium 4.8 H (3.4-4.6) mmol/L Anion Gap 15.6 H (6.8-13.8) mmol/L BUN 26 H (6-23) mg/dL BUN/Creatinine Ratio 22.0 H (9.0-21.6) Random Glucose 161 H (70-110) mg/dL AST 60 H (0-48) U/L Total Protein 6.0 L (6.2-8.2) gm/dL Albumin 2.9 L (3.4-5.0) gm/dl - EKG/Xray Findings EKG: NSR, rhythm EKG read: Interp. by me XRAY: chest Interpretation: Reviewed by me - Exam Constitutional: Present: Alert, Oriented x3, Cooperative, Well developed, Well nourished, Mild distress ENT Exam: Present: normal ENT inspection, hearing grossly normal, pharynx normal, TMs normal Neck: Present: non-tender, full range of motion, supple - And is to go Breasts: Present: Exam deferred Respiratory: Present: chest non-tender, crackles, rhonchi, wheezing, expiration (prolonged) Cardiovascular/Chest: Present: normal peripheral pulses, regular rate, rhythm, no chest tenderness, no edema, no gallop, no JVD, no murmur, no rub Abdomen: Present: Normal bowel sounds, soft, nontender, nondistended, no rebound tenderness, no hepatospenomegaly, no masses /Rectal: Present: Exam deferred Extremity: Present: normal range of motion, non-tender, normal inspection, no pedal edema, no calf tenderness, normal capillary refill Skin Exam: Present: normal color, warm/dry, no cyanosis Lymphatic: Present: no adenopathy Neurologic: Present: surgery consultant II-XII nml as tested, normal cerebellar test Appearance: Present: appropriate appearance, appropriate insight, neat, no memory impairment Eye contact: Present: cooperative, good eye contact, normal speech Thoughts: Present: normal thought pattern, no apparent hallucination Assessment/Plan Plan Narrative: 1. Continue CPAP and wean as able. 2. Continue oral dexamethasone 3. Repeat morning lab - Problems/Diagnosis (1) COVID-19 Problem: Acute (2) Pneumonia due to COVID-19 virus Problem: Acute (3) Hypoxia Problem: Acute (4) Morbid obesity with BMI of 40.0-44.9, adult Problem: Acute (5) Diabetes mellitus Problem: Acute Qualifiers: Diabetes mellitus type: type 2 Diabetes mellitus complication status: without complication (6) Coronary artery disease Problem: Chronic Qualifiers: Coronary Disease-Associated Artery/Lesion type: [place] artery [place] vs. transplanted heart: [place] heart Associated angina: without angina Qualified Code(s): I25.10 - Atherosclerotic heart disease of [place] coronary artery without angina pectoris (7) COPD (chronic obstructive pulmonary disease) Problem: Chronic Qualifiers: COPD type: chronic bronchitis Chronic bronchitis type: simple Qualified Code(s): J41.0 - Simple chronic bronchitis
[2020-06-30] MEDS: ROSUVASTATIN CALCIUM 20 MG TABLET PO SCH ×2 (19:56→20:38)
[2020-06-30] MEDS: ENOXAPARIN SODIUM 100 MG/ML SYRG SC SCH (20:45)
[2020-07-01] MEDS: PANTOPRAZOLE SODIUM 40 MG TABLET.EC PO SCH (07:21)
[2020-07-01 07:44] LABS: Albumin * 2.6 gm/dl (3.4-5.0); Anion Gap 15.5 mmol/L (6.8-13.8); BUN/Creatinine Ratio 30.5 (9.0-21.6); Bilirubin, Total 0.7 mg/dL (0.0-1.1); Ca. Corrected For Albumin 9.6 mg/dL (8.4-10.2); Calcium * 8.8 mg/dL (7.9-10.9); Carbon Dioxide 23.9 mmol/L (24-32.6); Potassium 4.4 mmol/L (3.4-4.6); Total Protein 6.3 gm/dL (6.2-8.2)
[2020-07-01] MEDS: ASPIRIN 81 MG TABLET.DR PO SCH (10:22)
[2020-07-01] MEDS: ATENOLOL 25 MG TABLET PO SCH (10:23)
[2020-07-01] MEDS: DEXAMETHASONE 2 MG TABLET PO SCH (10:23)
[2020-07-01] MEDS: ENALAPRIL MALEATE 20 MG TABLET PO SCH (10:23)
[2020-07-01] MEDS: ANORO ELLIPTA PO SCH (10:23)
--- NOTE | 2020-07-01 10:56 | PN ---
Subjective - Date and Time Seen Date: 07/01/20 Time: 10:52 Subjective Narrative: Patient is on CPAP after failing nasal cannula. He says he is feeling much better. A febrile. T-max of 37.4 Objective - Review of Systems Generalized/Overall Review: Denies: Weakness, Chills, Fever EENTM: Denies: Blurred Vision Respiratory: Reports: Cough, Shortness of Breath, Wheezing - Location Cardiac: Reports: Edema. Denies: Chest Pain, Palpitations Abdominal: Denies: Nausea, Vomiting Genitourinary Symptoms: Denies: Urgency, Frequency Musculoskeletal Complaints: Denies: Joint Pain, Back Pain Neurological: Denies: Headache Skin: Denies: Lesions, Rash Misc: All systems neg except as marked - Vitals Vitals: Last Vital Signs Temp 36.0 C 07/01/20 07:33 Pulse 79 07/01/20 10:23 Resp 36 H 07/01/20 09:24 BP 132/91 H 07/01/20 10:23 Pulse Ox 98 07/01/20 09:24 - Abnormal Lab Findings Abnormal Lab Findings: Abnormal Lab Results 07/01/20 Range/Units 06:45 Carbon Dioxide 23.9 L (24-32.6) mmol/L Anion Gap 15.5 H (6.8-13.8) mmol/L BUN 32 H (6-23) mg/dL BUN/Creatinine Ratio 30.5 H (9.0-21.6) Random Glucose 152 H (70-110) mg/dL AST 49 H (0-48) U/L Albumin 2.6 L (3.4-5.0) gm/dl - Exam Constitutional: Present: Alert, Oriented x3, Cooperative, Morbidly obese ENT Exam: Present: hearing grossly normal Neck: Present: supple. Absent: lymphadenopathy (R), lymphadenopathy (L) Respiratory: Present: decreased breath sounds, No rales, No wheezing Cardiovascular/Chest: Present: regular rate, rhythm, no JVD, no murmur Abdomen: Present: Normal bowel sounds, soft, nontender, obese Extremity: Present: no calf tenderness, lower extremity edema Assessment/Plan Plan Narrative: Aristeo is a 69-year-old white male who was admitted on the , for Covid pneumonia. He was having low oxygen saturation and was put on 15 L oxy mask. This did not improve his oxygen that much and so he was started on CPAP. He is on FiO2 of 60% with a PEEP of 10. He is saturating at 93% today. I did talk to him that if this noninvasive ventilation will not be successful the next step is an intubation. He said that he will talk first to the family. We will start him on IV Rocephin and azithromycin. We will continue with his dexamethasone. - Problems/Diagnosis (1) COVID-19 Problem: Acute (2) Hypoxia Problem: Acute (3) Pneumonia due to COVID-19 virus Problem: Acute (4) COPD (chronic obstructive pulmonary disease) Problem: Chronic Qualifiers: COPD type: chronic bronchitis Chronic bronchitis type: simple Qualified Code(s): J41.0 - Simple chronic bronchitis (5) Morbid obesity with BMI of 40.0-44.9, adult Problem: Acute (6) Diabetes mellitus Problem: Acute Qualifiers: Diabetes mellitus type: type 2 Diabetes mellitus complication status: without complication (7) Coronary artery disease Problem: Chronic Qualifiers: Coronary Disease-Associated Artery/Lesion type: [place] artery [place] vs. transplanted heart: [place] heart Associated angina: without angina Qualified Code(s): I25.10 - Atherosclerotic heart disease of [place] coronary artery without angina pectoris (8) Hyperlipidemia Problem: Chronic Qualifiers: Hyperlipidemia type: pure hypercholesterolemia Qualified Code(s): E78.00 - Pure hypercholesterolemia, unspecified (9) Hypertension Problem: Chronic Qualifiers: Hypertension type: essential hypertension Qualified Code(s): I10 - Essential (primary) hypertension
[2020-07-01] MEDS ORDERED: AZITHROMYCIN 250 MG TABLET PO ONE (11:24)
[2020-07-01] MEDS ORDERED: AZITHROMYCIN 250 MG TABLET ONE (13:09)
[2020-07-01] MEDS: IPRATROPIUM/ALBUTEROL SULFATE 120 PUFF INHALER IH SCH ×3 (13:10→23:46)
[2020-07-01] MEDS: ENOXAPARIN SODIUM 100 MG/ML SYRG SC SCH (20:49)
[2020-07-01] MEDS: ROSUVASTATIN CALCIUM 20 MG TABLET PO SCH (20:50)
[2020-07-02 07:10] LABS: Albumin * 2.8 gm/dl (3.4-5.0); Anion Gap 10.4 mmol/L (6.8-13.8); BUN/Creatinine Ratio 33.3 (9.0-21.6); Bilirubin, Total 0.8 mg/dL (0.0-1.1); Ca. Corrected For Albumin 9.4 mg/dL (8.4-10.2); Calcium * 8.8 mg/dL (7.9-10.9); Potassium 4.4 mmol/L (3.4-4.6); Total Protein 6.4 gm/dL (6.2-8.2)
[2020-07-02] MEDS: IPRATROPIUM/ALBUTEROL SULFATE 120 PUFF INHALER IH SCH ×3 (07:32→17:41)
[2020-07-02] MEDS: PANTOPRAZOLE SODIUM 40 MG TABLET.EC PO SCH (07:32)
[2020-07-02] MEDS: ALBUTEROL SULFATE 200 PUFF INHALER IH PRN (07:42)
[2020-07-02] MEDS: ASPIRIN 81 MG TABLET.DR PO SCH (09:25)
[2020-07-02] MEDS: DEXAMETHASONE 2 MG TABLET PO SCH (09:26)
[2020-07-02] MEDS: ENALAPRIL MALEATE 20 MG TABLET PO SCH (09:26)
[2020-07-02] MEDS: ATENOLOL 25 MG TABLET PO SCH (09:26)
[2020-07-02] MEDS: AZITHROMYCIN 250 MG TABLET PO SCH (09:26)
--- NOTE | 2020-07-02 16:40 | PN ---
Subjective - Date and Time Seen Date: 07/02/20 Time: 12:45 Subjective Narrative: Aristeo reports feeling a little more relaxed today on the CPAP. Oxygen was 97% on CPAP PEEP 10 with 60% FiO2, removing CPAP to high flow oxygen at 15lpm during meals he drops into the 80s. Objective - Vitals Vitals: Last Vital Signs Temp 36.6 C 07/02/20 15:11 Pulse 68 07/02/20 15:11 Resp 33 H 07/02/20 15:11 BP 111/68 07/02/20 15:11 Pulse Ox 96 07/02/20 15:11 - Abnormal Lab Findings Abnormal Lab Findings: Abnormal Lab Results 07/02/20 Range/Units 06:30 BUN 34 H (6-23) mg/dL BUN/Creatinine Ratio 33.3 H (9.0-21.6) Random Glucose 122 H (70-110) mg/dL AST 56 H (0-48) U/L ALT 101 H (19-67) U/L Albumin 2.8 L (3.4-5.0) gm/dl - Exam Constitutional: Present: Alert, Oriented x3, Cooperative ENT Exam: Present: hearing grossly normal Respiratory: Present: decreased breath sounds, wheezing Cardiovascular/Chest: Present: regular rate, rhythm, no murmur Abdomen: Present: Normal bowel sounds, soft, nontender, nondistended Skin Exam: Present: normal color, warm/dry, no cyanosis Appearance: Present: appropriate appearance, appropriate insight Eye contact: Present: cooperative, good eye contact, normal speech Thoughts: Present: normal thought pattern, no apparent hallucination Assessment/Plan Plan Narrative: Aristeo continues to require CPAP today and unable to tolerate nasal cannular high flow. Will continue to attempt weaning as able. Continue steroids, rocephin, azithromycin. Re-evaluated [place] treatment but he does not meet criteria as he is on high pressure support and it is beyond the treatment timeframe. - Problems/Diagnosis (1) Acute respiratory failure due to COVID-19 Problem: Acute (2) Pneumonia due to COVID-19 virus Problem: Acute
[2020-07-02] MEDS: ROSUVASTATIN CALCIUM 20 MG TABLET PO SCH (20:24)
[2020-07-02] MEDS: ENOXAPARIN SODIUM 100 MG/ML SYRG SC SCH (20:30)
[2020-07-03] MEDS: IPRATROPIUM/ALBUTEROL SULFATE 120 PUFF INHALER IH SCH ×2 (00:41→08:04)
[2020-07-03 07:09] LABS: Albumin * 2.6 gm/dl (3.4-5.0); Anion Gap 9.5 mmol/L (6.8-13.8); Bilirubin, Total 0.9 mg/dL (0.0-1.1); Ca. Corrected For Albumin 9.3 mg/dL (8.4-10.2); Calcium * 8.5 mg/dL (7.9-10.9); Carbon Dioxide 28.3 mmol/L (24-32.6); Potassium 4.8 mmol/L (3.4-4.6); Total Protein 6.3 gm/dL (6.2-8.2)
[2020-07-03] MEDS: PANTOPRAZOLE SODIUM 40 MG TABLET.EC PO SCH (07:17)
[2020-07-03] MEDS: ALBUTEROL SULFATE 200 PUFF INHALER IH PRN (07:17)
[2020-07-03] MEDS ORDERED: LORazepam 2 MG/ML DISP.SYRIN IV ONE (08:00)
[2020-07-03] MEDS ORDERED: PROPOFOL VIAL IV ONE (08:09)
[2020-07-03] MEDS ORDERED: MORPHINE SULFATE 2 MG/ML DISP.SYRIN IV ONE (08:17)
--- NOTE | 2020-07-03 08:25 | ANES ---
Anesthesia Procedure Note Procedure Note: 07/03/2020 8:00 AM Anesthesia consult: I was called to SCU to stat for an emergency intubation. All necessary equipment was gathered and PPE donned. At this point the patient was observed in a rather laborious breathing pattern. His ABGs came back within relatively reasonable parameters therefore the intubation was deferred. I remain ready for intubation if necessary with equipment gathered and PPE donned.
--- NOTE | 2020-07-03 10:27 | DS ---
Transfer Discharge Summary - Diagnosis(s)/Problems (1) Acute respiratory failure due to COVID-19 Problem: Acute (2) Pneumonia due to COVID-19 virus Problem: Acute (3) Morbid obesity with BMI of 40.0-44.9, adult Problem: Acute (4) COPD (chronic obstructive pulmonary disease) Problem: Chronic - Course Description of Stay: Aristeo is a 69 yo male with COPD who was admitted for acute respiratory failure secondary to COVID-19 pneumonia. He was treated with Dexamethasone, Rocephin, Azithromycin, and oxygen therapy. In order to keep oxygen >90% he was requiring high flow of oxygen on CPAP. FiO2 was adjusted as was PEEP to keep sats >90%. Despite this he continued to work hard to breath. He had respirations in the 40s and continued to have difficulty despite getting oxygen up to 85% FiO2 and a PEEP of 20. Discussed care with [facility] who agreed to accept him in transfer. He was transferred via [id number] flight crew. While moving the patient his saturations dropped into the 80s and they felt uncomfortable transporting him without a stable airway. He was intubated by [id number] and transferred via their air care. Procedures Performed: see notes below Procedures: Intubation by [id number] 07/03/2020 - Results and Findings Results and Findings: Laboratory Results - last 24 hr 07/03/20 07/03/20 06:45 07:50 pCO2 34.0 L pO2 65.8 L HCO3 21.7 Total CO2 22.8 Base Excess -1.9 ABG pH 7.42 ABG O2 Sat (Measured) 93.6 L Sodium 138 Plasma Sodium 138 Potassium 4.8 H Chloride 105 Carbon Dioxide 28.3 Anion Gap 9.5 BUN 30 H Creatinine 1.07 Est GFR (Non-Af Amer) 73 BUN/Creatinine Ratio 28.0 H Random Glucose 111 H Calcium 8.5 Calcium Adj for Albumin 9.3 Total Bilirubin 0.9 AST 45 ALT 93 H Alkaline Phosphatase 89 Total Protein 6.3 Albumin 2.6 L - Medications Medications: Active Medications Albuterol Sulfate (Ventolin Hfa) 2 puff IH .Q4-6H PRN PRN Reason: Wheezing Stop: 07/29/20 14:57 Last Admin: 07/03/20 07:17 Dose: 2 puff Documented by: Albuterol/Ipratropium (Ipratropium/Albuterol Sulfate 120 Puff Inhaler) 1 puff IH Q6H [facility] Stop: 07/31/20 12:16 Last Admin: 07/03/20 08:04 Dose: Not Given Documented by: Aspirin (Aspirin Enteric Coated) 162 mg PO DAILY [facility] Stop: 07/29/20 15:01 Last Admin: 07/02/20 09:25 Dose: 162 mg Documented by: Atenolol (Tenormin) 25 mg PO DAILY [facility] Stop: 07/30/20 09:01 Last Admin: 07/02/20 09:26 Dose: 25 mg Documented by: Azithromycin (Azithromycin 250 Mg Tablet) 250 mg PO DAILY [facility]; Protocol Stop: 07/05/20 09:01 Last Admin: 07/02/20 09:26 Dose: 250 mg Documented by: Dexamethasone (Decadron) 6 mg PO DAILY [facility] Stop: 07/29/20 19:46 Last Admin: 07/02/20 09:26 Dose: 6 mg Documented by: Enalapril Maleate (Vasotec) 20 mg PO DAILY [facility] Stop: 07/29/20 15:01 Last Admin: 07/02/20 09:26 Dose: 20 mg Documented by: Enoxaparin Sodium (Lovenox) 100 mg SC Q24H [facility] Stop: 07/28/20 21:31 Last Admin: 07/02/20 20:30 Dose: 100 mg Documented by: Ceftriaxone Sodium 1,000 mg/ (Dextrose/Water) 100 mls @ 200 mls/hr IV Q24H [facility]; Protocol Stop: 07/31/20 11:31 Last Infusion: 07/02/20 11:59 Dose: Infused Documented by: Pantoprazole Sodium (Protonix) 40 mg PO DAILY@0700 [facility] Stop: 07/29/20 15:01 Last Admin: 07/03/20 07:17 Dose: 40 mg Documented by: Rosuvastatin Calcium (Crestor) 20 mg PO HS [facility] Stop: 07/29/20 21:01 Last Admin: 07/02/20 20:24 Dose: 20 mg Documented by: Discontinued Medications Albuterol/Ipratropium (Duoneb 2.5-0.5mg/3ml Soln) 3 ml IH ONCE ONE Stop: 06/28/20 18:37 Last Admin: 06/28/20 18:42 Dose: 3 ml Documented by: Azithromycin (Azithromycin 250 Mg Tablet) 500 mg PO ONCE ONE; Protocol Stop: 07/01/20 11:25 Last Admin: 07/01/20 13:10 Dose: 500 mg Documented by: Dexamethasone (Decadron) 6 mg PO DAILY [facility] Stop: 07/29/20 19:46 Last Admin: 06/29/20 21:12 Dose: 6 mg Documented by: Dexamethasone Sodium Phosphate (Dexamethasone) 10 mg IV ONCE ONE Stop: 06/28/20 18:27 Last Admin: 06/28/20 18:33 Dose: 10 mg Documented by: Acetaminophen (Ofirmev) 1,000 mg in 100 mls @ 400 mls/hr IV ONCE ONE Stop: 06/28/20 19:17 Last Infusion: 06/28/20 19:25 Dose: Infused Documented by: Sodium Chloride (Sodium Chloride 0.9%) 1,000 mls @ 999 mls/hr IV .Q1H1M ONE Stop: 06/28/20 21:17 Last Infusion: 06/29/20 04:24 Dose: Infused Documented by: Sodium Chloride (Sodium Chloride 0.9%) 1,000 mls @ 999 mls/hr IV .Q1H1M ONE Stop: 06/28/20 21:18 Last Infusion: 06/29/20 04:24 Dose: Infused Documented by: Lorazepam (Ativan) 1 mg IV ONCE ONE Stop: 06/29/20 16:55 Last Admin: 06/29/20 17:01 Dose: 1 mg Documented by: Lorazepam (Lorazepam 2 Mg/Ml Disp.Syrin) 0.5 mg IV ONCE ONE Stop: 07/03/20 08:01 Last Admin: 07/03/20 08:24 Dose: 0.5 mg Documented by: Methylprednisolone Sodium Succinate (Solu-Medrol) 80 mg IV ONCE ONE Stop: 06/30/20 10:21 Last Admin: 06/30/20 10:40 Dose: 80 mg Documented by: Morphine Sulfate (Morphine Sulfate) 3 mg IV ONCE STA Stop: 06/29/20 16:55 Last Admin: 06/29/20 17:00 Dose: 3 mg Documented by: Morphine Sulfate (Morphine Sulfate 2 Mg/Ml Disp.Syrin) 2 mg IV ONCE ONE Stop: 07/03/20 08:18 Last Admin: 07/03/20 08:28 Dose: 2 mg Documented by: Anoro Ellipta 62.5- (25 Mcg Inh 62.5 Mcg) 62.5 mcg PO DAILY [facility] Stop: 07/29/20 15:01 Last Admin: 07/01/20 10:23 Dose: 62.5 mcg Documented by: - Disposition Disposition: Short Term Hospital Inpatient Condition: Critical Discharge Date: 07/03/20 Discharge Time: 14:13
[2020-07-03] MEDS: ASPIRIN 81 MG TABLET.DR PO SCH (11:15)
[2020-07-03] MEDS: AZITHROMYCIN 250 MG TABLET PO SCH (11:15)
[2020-07-03] MEDS: ATENOLOL 25 MG TABLET PO SCH (11:15)
[2020-07-03] MEDS: DEXAMETHASONE 2 MG TABLET PO SCH (11:15)
[2020-07-03] MEDS: ENALAPRIL MALEATE 20 MG TABLET PO SCH (11:16)
[2020-07-03] MEDS ORDERED: PROPOFOL 1,000 MG/100 ML PIGGYBACK IV PRN (13:33)
[2020-07-03 14:28] VITALS: BP 125/72
== END 2020-07-03 14:00 | disposition short-term general hospital (02) | DRG 177 ==
LOC: ER 18:01 → SCU 20:50
PROVIDERS: ADMIT Family Medicine; ATTEND Family Medicine
DX: E66.01 Morbid (severe) obesity due to excess calories; E78.5 Hyperlipidemia, unspecified; J12.89 Other viral pneumonia; U07.1 COVID-19; Z68.41 Body mass index [BMI] 40.0-44.9, adult; I11.0 Hypertensive heart disease with heart failure; I25.10 Atherosclerotic heart disease of native coronary artery without angina pectoris; J44.9 Chronic obstructive pulmonary disease, unspecified; J96.00 Acute respiratory failure, unspecified whether with hypoxia or hypercapnia; E11.9 Type 2 diabetes mellitus without complications